=== PATIENT | female | born 1975 | race Caucasian/White ===

== ENCOUNTER 2023-06-12 12:54 | Inpatient (IN) | payer MEDICAID ==
[~2023-06-12] VITALS: Ht 177.8 cm; Wt 92.9 kg
[~2023-06-12 12:54] MED LIST: CLIN-27 PO; HYDR-3965 PO; IBUP-1984 PO
[2023-06-12 13:59] LABS: BASOPHILS % (AUTO) 0.4 % (0-1); EOSINOPHILS # (AUTO) 0.1 X10'3 (0-0.9); EOSINOPHILS % (AUTO) 1.4 % (0-6); HEMATOCRIT 35.9 % (35.0-45.0); HEMOGLOBIN 11.9 g/dl (12.0-16.0); LYMPHOCYTES # (AUTO) 1.3 X10'3 (1.1-4.8); LYMPHOCYTES % (AUTO) 13.1 % (21-51); MEAN CORPUSCULAR HEMOGLOBIN 27.3 PG (27.0-31.0); MEAN CORPUSCULAR VOLUME 82.7 FL (78-98); MEAN PLATELET VOLUME 7.6 FL (7.4-10.4); MONOCYTES # (AUTO) 0.6 X10'3 (0-0.9); MONOCYTES % (AUTO) 6.1 % (2-12); NEUTROPHILS # (AUTO) 7.7 X10'3 (1.8-7.7); PLATELET COUNT 309 X10'3 (140-440); RED BLOOD COUNT 4.34 X10'6 (4.20-5.60); RED CELL DISTRIBUTION WIDTH 15.8 % (11.5-14.5); WHITE BLOOD COUNT 9.7 X10'3 (4.5-11.0)
[2023-06-12 14:13] LABS: ALANINE AMINOTRANSFERASE 23 U/L (12-78); ALBUMIN 3.8 G/DL (3.4-5.0); ALBUMIN/GLOBULIN RATIO 1.1 (1.1-1.5); ALKALINE PHOSPHATASE 73 IU/L (46-116); ANION GAP 7 (8-16); ASPARTATE AMINO TRANSFERASE 15 U/L (10-37); BILIRUBIN,TOTAL 0.2 MG/DL (0.1-1.0); BLOOD UREA NITROGEN 20 MG/DL (7-18); BUN/CREATININE RATIO 28.6 (10.0-20.0); CALCIUM 9.1 MG/DL (8.5-10.1); CHLORIDE 104 MMOL/L (99-107); GLUCOSE 103 MG/DL (70-104); POTASSIUM 4.2 MMOL/L (3.5-5.1); SODIUM 138 MMOL/L (135-145); TOTAL CARBON DIOXIDE 27.1 MMOL/L (24-32); TOTAL PROTEIN 7.2 G/DL (6.4-8.2); eCRCL 110 ML/MIN; eGFR 90 ML/MIN
[2023-06-12 14:14] LABS: LIPASE 25 U/L (16-77)
[2023-06-12 14:43] LABS: BILIRUBIN,URINE NEGATIVE (Neg); CLARITY,URINE CLEAR (Clear); COLOR,URINE YELLOW (Yellow); GLUCOSE, URINE NEGATIVE (Neg); KETONES,URINE NEGATIVE (Neg); LEUKOCYTE ESTERASE ,URINE NEGATIVE (Neg); NITRITES, URINE NEGATIVE (Neg); OCCULT BLOOD,URINE NEGATIVE (Neg); PH,URINE 5.5 (4.8-8.0); PROTEIN,URINE NEGATIVE (Neg); URINE HCG NEGATIVE (NEG); UROBILINOGEN,URINE 0.2 E.U/dL (0.2-1.0)
[2023-06-12 14:49] LABS: UA COLLECTION TYPE CLN CATCH MIDSTREAM
[2023-06-12] MEDS ORDERED: normal saline 1000ML IV soln IVB ONE (16:55)
[2023-06-12] MEDS ORDERED: iohexol 300mg/ml 100ml inj. ONE (17:01)
[2023-06-12 17:24] LABS: APTT 29 SECONDS (22-32); PROTHROMBIN TIME 10.9 SECONDS (9.0-12.0)
[2023-06-12] MEDS: pantoprazole 40mg IV 80 MG in normal saline 100ml IV soln 100 ML IV ONE ×2 (18:22→18:49)
[2023-06-12] MEDS ORDERED: metroNIDAZOLE-Flagyl 500mg/NS 100 ML IV STA (18:22)
[2023-06-12] MEDS ORDERED: pantoprazole 40MG/NS 100ML BAG 100 ML IV ONE (18:25)
[2023-06-12] MEDS ORDERED: levoFLOXACIN-Levaquin 500mg/D5 100 ML IV ONE (18:25)
[2023-06-12] MEDS ORDERED: pantoprazole 40mg IV 80 MG in normal saline 100ml IV soln 100 ML IV ONE (19:00)
[2023-06-12] MEDS ORDERED: LORazepam 2 mg/ml vial IV ONE (19:15)
[2023-06-12] MEDS ORDERED: acetaminophen 650mg rectal suppository RC PRN (19:35)
[2023-06-12] MEDS ORDERED: bisacodyl 10mg suppository rectal RC PRN (19:35)
[2023-06-12] MEDS ORDERED: morphine 2 MG/ML inj. syringe IV PRN ×2 (19:35)
[2023-06-12] MEDS ORDERED: HYDROmorphone inj. 0.5 MG/0.5 ML DISP.SYRIN IV PRN (19:35)
[2023-06-12] MEDS ORDERED: acetaminophen 325mg tablet PO PRN ×2 (19:35)
[2023-06-12] MEDS ORDERED: ondansetron/PF 4mg/2ml inj IV PRN (19:35)
[2023-06-12] MEDS: normal saline 1000ml 1,000 ML IV SCH (19:35)
[2023-06-12] MEDS ORDERED: diphenhydrAMINE 25mg capsule PO PRN (19:35)
[2023-06-12] MEDS ORDERED: HYDROcodone/acetaminophen 5mg/325mg tablet PO PRN (19:35)
[2023-06-12] MEDS ORDERED: ondansetron 4mg rapidly disintigrating tab PO PRN (19:35)
[2023-06-12] MEDS ORDERED: metoclopramide 5 mg/ml inj IV PRN (19:35)
[2023-06-12] MEDS ORDERED: HYDROcodone/acetaminophen 10/325mg tab PO PRN (19:35)
[2023-06-12] MEDS ORDERED: diphenhydrAMINE 50 mg/ml inj IV PRN (19:35)
[2023-06-12] MEDS ORDERED: mag hydrox/Alum hydrox/simeth 30ml oral suspension PO PRN (19:35)
[2023-06-12] MEDS ORDERED: magnesium hydroxide 30ml (MOM) UD suspension PO PRN (19:35)
[2023-06-12] MEDS: docusate sod 100mg capsule PO SCH (20:00)
[2023-06-12] MEDS ORDERED: heparin, porcine 5000 units/ml vial SQ SCH (20:00)
[2023-06-12 20:06] LABS: HEMOGLOBIN A1C 5.9 % (4.5-6.2)
[2023-06-12 20:17] LABS: MAGNESIUM 2.2 MG/DL (1.5-2.4); PHOSPHORUS 4.4 MG/DL (2.3-4.5); PRO BRAIN NATRIURETIC PEPTIDE 76 PG/ML (0-125); THYROID STIMULATING HORMONE 0.83 ulU/ml (0.34-4.50)
[2023-06-12] MEDS ORDERED: temazepam 15mg capsule PO PRN (21:00)
[2023-06-12] MEDS: metroNIDAZOLE-Flagyl 500mg/NS 100 ML IV SCH (21:40)
[2023-06-13] VITALS (15 sets, daily range): BP systolic 91–108; BP diastolic 55–71; PULSE 57–81; RESP 10–20; TEMP 97.6–98; O2SAT 92–100
[2023-06-13 07:20] LABS: BASOPHILS % (AUTO) 0.5 % (0-1); EOSINOPHILS # (AUTO) 0.1 X10'3 (0-0.9); EOSINOPHILS % (AUTO) 2.1 % (0-6); HEMOGLOBIN 10.6 g/dl (12.0-16.0); LYMPHOCYTES # (AUTO) 1.3 X10'3 (1.1-4.8); LYMPHOCYTES % (AUTO) 31.1 % (21-51); MEAN CORPUSCULAR HEMOGLOBIN 27.2 PG (27.0-31.0); MEAN CORPUSCULAR VOLUME 82.4 FL (78-98); MEAN PLATELET VOLUME 7.3 FL (7.4-10.4); MONOCYTES # (AUTO) 0.3 X10'3 (0-0.9); MONOCYTES % (AUTO) 7.9 % (2-12); NEUTROPHILS # (AUTO) 2.5 X10'3 (1.8-7.7); NEUTROPHILS % (AUTO) 58.4 % (42-75); PLATELET COUNT 262 X10'3 (140-440); RED BLOOD COUNT 3.88 X10'6 (4.20-5.60); RED CELL DISTRIBUTION WIDTH 16.1 % (11.5-14.5); WHITE BLOOD COUNT 4.3 X10'3 (4.5-11.0)
[2023-06-13 07:46] LABS: ALANINE AMINOTRANSFERASE 23 U/L (12-78); ALBUMIN 2.8 G/DL (3.4-5.0); ALKALINE PHOSPHATASE 59 IU/L (46-116); ANION GAP 7 (8-16); ASPARTATE AMINO TRANSFERASE 12 U/L (10-37); BILIRUBIN,TOTAL 0.3 MG/DL (0.1-1.0); BLOOD UREA NITROGEN 10 MG/DL (7-18); BUN/CREATININE RATIO 16.4 (10.0-20.0); CALCIUM 8.1 MG/DL (8.5-10.1); CHLORIDE 110 MMOL/L (99-107); CHOL/HDL RATIO 3.3 (0.00-4.99); CHOLESTEROL 103 MG/DL (0-200); CREATININE 0.61 MG/DL (0.40-0.90); GLUCOSE 93 MG/DL (70-104); HDL CHOLESTEROL 31 MG/DL (35-60); LDL CHOLESTEROL 54 MG/DL (50-100); POTASSIUM 4.2 MMOL/L (3.5-5.1); SODIUM 140 MMOL/L (135-145); TOTAL CARBON DIOXIDE 22.9 MMOL/L (24-32); TOTAL PROTEIN 5.6 G/DL (6.4-8.2); TRIGLYCERIDES 132 MG/DL (20-135); eCRCL 126 ML/MIN; eGFR > 90 ML/MIN
[2023-06-13] MEDS ORDERED: pantoprazole 40MG/NS 100ML BAG 100 ML IV SCH (08:00)
[2023-06-13] MEDS: docusate sod 100mg capsule PO SCH (08:00)
[2023-06-13] MEDS: metroNIDAZOLE-Flagyl 500mg/NS 100 ML IV SCH (08:45)
[2023-06-13] MEDS: normal saline 1000ml 1,000 ML IV SCH ×2 (08:45→15:35)
[2023-06-13] MEDS ORDERED: levoFLOXACIN 750MG TABLET PO SCH (11:00)
[2023-06-13] MEDS ORDERED: INDOCYANINE GREEN 25 MG/10 ML VIAL IV ONE (12:20)
[2023-06-13] MEDS ORDERED: morphine 2 MG/ML inj. syringe IV PRN (16:10)
[2023-06-13] MEDS ORDERED: hydrALAZINE 20mg/ml inj. IV PRN (16:10)
[2023-06-13] MEDS ORDERED: labetalol 20mg/4ml (5mg/ml) syringe IV PRN (16:10)
[2023-06-13] MEDS ORDERED: morphine 4 MG/ML inj SYRINge IV PRN (16:10)
[2023-06-13] MEDS ORDERED: fentaNYL/PF 50MCG/1 ML 2ML syringe IV PRN ×2 (16:10)
[2023-06-13] MEDS ORDERED: ondansetron/PF 4mg/2ml inj IV PRN (16:10)
[2023-06-13] MEDS ORDERED: ringers solution, lacted 1,000 ML IV SCH (16:10)
[2023-06-13] MEDS ORDERED: BUPIVAcaine/PF 2.5mg/ml (0.25%) 10ml vial ONE (17:03)
[2023-06-13] MEDS ORDERED: LIDOcaine 1% (10mg/ml)w/preservative inj. 20ml MDV ONE (17:03)
[2023-06-13] MEDS ORDERED: neostigmine methylsulfate 1 MG/ML 10ml vial ONE (17:07)
[2023-06-13] MEDS ORDERED: glycopyrrolate 0.2mg/ml inj ONE (17:07)
[2023-06-13] MEDS ORDERED: desflurane 240ml liquid inh. IH ONE (17:07)
[2023-06-13] MEDS ORDERED: dexamethasone sod phosphate 10mg/ml inj ONE (17:07)
[2023-06-13] MEDS ORDERED: midazolam 1 mg/ML 2ml injection ONE (17:14)
[2023-06-13] MEDS ORDERED: fentaNYL/PF 50MCG/1 ML 2ML syringe ONE (17:14)
[2023-06-13] MEDS ORDERED: morphine 10mg/ml inj. ONE (17:15)
[2023-06-13] MEDS ORDERED: ondansetron/PF 4mg/2ml inj ONE (17:33)
[2023-06-13] MEDS ORDERED: rocuronium 10mg/ml inj IV ONE (17:34)
[2023-06-13] MEDS ORDERED: propofol inj 20 ML IV ONE (17:34)
[2023-06-13] MEDS ORDERED: LIDOcaine 2% (20mg/ml) 5ml vial ONE (17:34)
[2023-06-13] MEDS ORDERED: clindamycin-Cleocin 900mg/D5W 50 ML IV ONE (17:40)
[2023-06-13] MEDS ORDERED: oxyCODONE/APAP 5-325mg tablet PO PRN (18:20)
[2023-06-13] MEDS ORDERED: naloxone 0.4 mg/ml inj IV PRN (18:30)
== END 2023-06-13 19:25 | disposition home or self-care (01) | DRG 263 ==
LOC: ER 12:54 → ED HOLD 19:39 → PCU 3S 06-13 08:18 → SUR 3N 06-13 16:47 → PCU 3S 06-13 16:48
PROVIDERS: ADMIT Family Medicine; ATTEND Internal Medicine
PROC: BW211ZZ Computerized Tomography (CT Scan) of Abdomen and Pelvis using Low Osmolar Contrast (ICD-10-PCS; 2023-06-12)
PROC: BF131ZZ Fluoroscopy of Gallbladder and Bile Ducts using Low Osmolar Contrast (ICD-10-PCS; 2023-06-13)
PROC: 0FT44ZZ Resection of Gallbladder, Percutaneous Endoscopic Approach (ICD-10-PCS; principal; 2023-06-13 17:07)
DX: K80.00 Calculus of gallbladder with acute cholecystitis without obstruction (principal); E66.9 Obesity, unspecified; K57.32 Diverticulitis of large intestine without perforation or abscess without bleeding; Z68.29 Body mass index [BMI] 29.0-29.9, adult; Z88.0 Allergy status to penicillin; Z98.84 Bariatric surgery status
CPT/HCPCS: 36415; 71045; 74177; 76700; 80053; 80061; 81003; 81025; 82948; 83036; 83690; 83735; 83880; 84100; 84443; 84484; 85025; 85610; 85730; 87081; 99285; A4215; A4618; A7000; C9113; G0378; J1100; J1170; J1956; J2060; J2250; J2270; J2274; J2405; J2704; J2710; J3010; J3490; J7030; J7120; Q9967